=== PATIENT | female | born 2000 | race Caucasian/White ===

== ENCOUNTER → 2020-01-07 14:59 | Outpatient (BNVA) | payer BC, SELFPAY | PROVIDERS: Family Provider Internal Medicine; PCP Nurse Practitioner Family; Visit Provider Nurse Practitioner Family | DX: N39.0 Urinary tract infection, site not specified (principal) | CPT/HCPCS: 80053; 81001 ==

== ENCOUNTER → 2020-01-29 15:55 | Outpatient (BNVA) | payer BC, SELFPAY | PROVIDERS: Family Provider Internal Medicine; PCP Nurse Practitioner Family; Visit Provider Urology | DX: R31.0 Gross hematuria (principal); N93.9 Abnormal uterine and vaginal bleeding, unspecified | CPT/HCPCS: 81001 ==

== ENCOUNTER 2020-12-22 15:41 | Emergency (ER) | payer BC, SELFPAY ==
[2020-12-22 15:47] VITALS: BP 136/97; PULSE 93; RESP 18; TEMP 37.1; O2SAT 100; BMI 45.1
--- NOTE | 2020-12-22 16:37 | CTR_ITS ---
PROCEDURE INFORMATION: Exam: XR Abdomen Exam date and time: 12/22/2020 5:44 PM Age: 20 years (approx. age) old Clinical indication: Nausea and vomiting and other: Diarrhea; Abdominal pain; Localized; Right upper quadrant (ruq); Prior surgery; Surgery type: Gb TECHNIQUE: Imaging protocol: CT abdomen and pelvis with intravenous contrast. Two-dimensional multiplanar reconstruction. COMPARISON: No relevant prior studies available. FINDINGS: Liver: Normal. No mass. Gallbladder and bile ducts: Cholecystectomy. No calcified stones. No ductal dilation. Pancreas: Normal. No ductal dilation. Spleen: Normal. No splenomegaly. Adrenal glands: Normal. No mass. Kidneys and ureters: Normal. No hydronephrosis. Stomach and bowel: Unremarkable. No obstruction. No mucosal thickening. Appendix: No evidence of appendicitis. Intraperitoneal space: Unremarkable. No free air. No significant fluid collection. Vasculature: Unremarkable. No abdominal aortic aneurysm. Lymph nodes: Clustered, prominent increase in mesenteric lymph nodes. Hazy mesenteric induration changes of the central abdominal mesentery around the nodes. Urinary bladder: Unremarkable as visualized. Reproductive: Unremarkable as visualized. Bones/joints: Unremarkable. No acute fracture. Soft tissues: Unremarkable. CT/CT abdomen pelvis w con* [id number] IMPRESSION: Nonspecific mild mesenteric adenitis changes in the central abdomen. Zenia mesentery changes present. Radiation Dose CTDIVOL = (mGy): DLP = 1910.6 (mGy-cm)
[2020-12-22 16:48] VITALS: BP 178/92; PULSE 78; RESP 18; O2SAT 100
[2020-12-22 16:49] LABS: Basophils % 0.5 %; Eosinophils # 0.2 10^3/uL (0.0-0.8); Eosinophils % 2.4 %; Hematocrit 41.2 % (37.0-47.0); Hemoglobin 13.1 g/dL (11.5-15.3); Lymphocytes # 2.7 10^3/uL (1.5-6.5); Mean Corpuscular HGB Conc 31.8 g/dL (30.0-36.0); Mean Corpuscular Hemoglobin 25.8 pg (28.0-34.0); Mean Corpuscular Volume 81.1 fL (81-99); Monocytes # 0.4 10^3/uL (0.2-0.9); Monocytes % 5.1 %; Neutrophils # 5.02 10^3/uL (1.8-8.0); Neutrophils % 59.4 %; Nucleated Red Blood Cells % 0 %; Platelet Count 417 10^3/cmm (130-400); Red Blood Count 5.08 10^6/uL (4.1-5.3); Red Cell Distribution Width 13.4 % (12.1-15.1); White Blood Count 8.4 10^3/uL (4.5-13.0)
[2020-12-22 16:57] LABS: Add Urine Microscopic? NO; Charge for UA Resulting for Rev
[2020-12-22 17:02] LABS: Bilirubin Urine Neg (Negative); Blood Urine Neg (Negative); Glucose Urine UA Norm (Normal); Ketones Urine Negative (Negative); Leukocyte Esterase Urine Negative (Negative); Nitrate Urine Negative (Negative); Protein Urine Neg (Negative); Specific Gravity, Urine 1.005 (1.005-1.030); Urine Appearance Clear (CLEAR); Urine Color Straw (Yellow); Urobilinogen Urine Norm (Negative); pH Urine 5 (5-7)
--- NOTE | 2020-12-22 17:07 | ED_ITS ---
Documented by User: Noé Fan DO 12/26/20 08:08 HPI - Abdominal Pain General: Chief Complaint: Abdominal Pain Stated Complaint: AB/BACK PAIN Time Seen by Provider: 12/22/20 16:34 History of Present Illness: HPI narrative: 20-year-old female presents emergency room complaining of right upper quadrant pain radiating to her back with acholic stools. She has been having this for the last approximately a week. She states it feels like what she had some light with biliary colic but she has had her gallbladder out. She has had nausea but no vomiting or diarrhea. MD elicited complaint: abdominal pain Onset (ago): hour(s) Pain Consistency: intermittent Location: RUQ Quality: cramping Radiation: back Exacerbating factors: eating Relieving factors: nothing Associated Symptoms: Reports anorexia, bloating, change in stool character, GI cramping and poor appetite; Denies belching, change in bowel habits, chills, coffee ground emesis, constipation, diarrhea, dyspepsia, dysuria, excessive flatus, fever(s), heartburn, hematochezia, hematuria, hematemesis, fecal incontinence, loose stools, melena, nausea, syncope and vomiting Review of Systems Const: Denies: fever(s) or chills ENMT: Denies: throat pain, ear or mastoid pain, nasal discharge or nasal congestion Card: Denies: syncope Resp: Denies: dyspnea, productive cough or non-productive cough GI: Reports: abdominal pain, bloating, GI cramping and change in stool character; Denies: nausea, vomiting, hematemesis, coffee ground emesis, heartburn, diarrhea, constipation, belching, excessive flatus, fecal incontinence, change in bowel habits, hematochezia or melena : Denies: dysuria or hematuria Skin/Breast: Denies: rash or pruritus PFSH ED PFSH: Medical History Gross hematuria Lyme disease Polycystic ovarian disease Surgical History S/P cholecystectomy S/P tonsillectomy and adenoidectomy Family History Father CAD (coronary artery disease) Hypertension Hyperlipidemia Mother Hyperlipidemia Hypertension Social History Smoking and tobacco status: never smoked Alcohol intake: never Marital status: Single Current occupational status: student History of recent travel: No Course Vital Signs: Vital signs: Vital Signs Temperature 98.7 F 12/22/20 15:47 Pulse Rate 108 H 12/22/20 18:48 Respiratory Rate 18 12/22/20 18:48 Blood Pressure 178/92 12/22/20 16:48 Pulse Oximetry 98 12/22/20 18:48 MDM - Abdominal Pain MDM Narrative: Medical decision making narrative: Care turned over to Dr. Cao at change of shift see his notes for final diagnosis and disposition. CT is pending Lab Data: Labs: Lab Results 12/22/20 12/22/20 12/22/20 Range/Units 16:40 16:40 16:40 WBC 8.4 (4.5-13.0) 10^3/ uL RBC 5.08 (4.1-5.3) 10^6/u L Hgb 13.1 (11.5-15.3) g/dL Hct 41.2 (37.0-47.0) % MCV 81.1 (81-99) fL MCH 25.8 L (28.0-34.0) pg MCHC 31.8 (30.0-36.0) g/dL RDW 13.4 (12.1-15.1) % Plt Count 417 H (130-400) 10^3/c mm MPV 9.0 (7.4-10.4) fL Neut % (Auto) 59.4 % Lymph % (Auto) 32.0 % [place] % (Auto) 5.1 % Eos % (Auto) 2.4 % Baso % (Auto) 0.5 % Neut # (Auto) 5.02 (1.8-8.0) 10^3/u L Lymph # (Auto) 2.7 (1.5-6.5) 10^3/u L [place] # (Auto) 0.4 (0.2-0.9) 10^3/u L Eos # (Auto) 0.2 (0.0-0.8) 10^3/u L Baso # (Auto) 0.0 (0.0-0.1) 10^3/u L Nucleated RBC % (a uto) 0 % Nucleated RBCs # 0.0 /100WBC Sodium 137 (136-145) mmol/L Potassium 4.2 (3.5-5.1) mmol/L Chloride 104 (98-107) mmol/L Carbon Dioxide 23 (22-29) mmol/L Anion Gap 14.2 (5-19) BUN 6 (6-20) mg/dL Creatinine 0.5 (0.5-0.9) mg/dL GFR Calculation 157.3 H (90-130) mL/min Glucose 97 (65-115) mg/dL Calculated Osmolal ity 282 L (285-295) mOsm/k g Calcium 8.9 (8.5-10.5) mg/dL Total Bilirubin 0.2 (0.15-1.2) mg/dL AST 24 (0-32) U/L ALT 36 H (0-33) U/L Alkaline Phosphata se 59 (35-105) IU/L Total Protein 7.1 (6.6-8.7) g/dL Albumin 4.0 (3.5-5.2) g/dL Globulin 3.1 (1.3-4.6) g/dL Lipase 32 (13-60) U/L HCG, Qual Negative (Negative) Urine Color (Yellow) Urine Appearance (CLEAR) Urine pH (5-7) Ur Specific Gravit y (1.005-1.030) Urine Protein (Negative) Urine Glucose (UA) (Normal) Urine Ketones (Negative) Urine Blood (Negative) Urine Nitrate (Negative) Urine Bilirubin (Negative) Urine Urobilinogen (Negative) mg/dL Ur Leukocyte Jodee ase (Negative) 12/22/20 Range/Units 16:40 WBC (4.5-13.0) 10^3/ uL RBC (4.1-5.3) 10^6/u L Hgb (11.5-15.3) g/dL Hct (37.0-47.0) % MCV (81-99) fL MCH (28.0-34.0) pg MCHC (30.0-36.0) g/dL RDW (12.1-15.1) % Plt Count (130-400) 10^3/c mm MPV (7.4-10.4) fL Neut % (Auto) % Lymph % (Auto) % [place] % (Auto) % Eos % (Auto) % Baso % (Auto) % Neut # (Auto) (1.8-8.0) 10^3/u L Lymph # (Auto) (1.5-6.5) 10^3/u L [place] # (Auto) (0.2-0.9) 10^3/u L Eos # (Auto) (0.0-0.8) 10^3/u L Baso # (Auto) (0.0-0.1) 10^3/u L Nucleated RBC % (a uto) % Nucleated RBCs # /100WBC Sodium (136-145) mmol/L Potassium (3.5-5.1) mmol/L Chloride (98-107) mmol/L Carbon Dioxide (22-29) mmol/L Anion Gap (5-19) BUN (6-20) mg/dL Creatinine (0.5-0.9) mg/dL GFR Calculation (90-130) mL/min Glucose (65-115) mg/dL Calculated Osmolal ity (285-295) mOsm/k g Calcium (8.5-10.5) mg/dL Total Bilirubin (0.15-1.2) mg/dL AST (0-32) U/L ALT (0-33) U/L Alkaline Phosphata se (35-105) IU/L Total Protein (6.6-8.7) g/dL Albumin (3.5-5.2) g/dL Globulin (1.3-4.6) g/dL Lipase (13-60) U/L HCG, Qual (Negative) Urine Color Straw (Yellow) Urine Appearance Clear (CLEAR) Urine pH 5 (5-7) Ur Specific Gravit y 1.005 (1.005-1.030) Urine Protein Neg (Negative) Urine Glucose (UA) Norm (Normal) Urine Ketones Negative (Negative) Urine Blood Neg (Negative) Urine Nitrate Negative (Negative) Urine Bilirubin Neg (Negative) Urine Urobilinogen Norm (Negative) mg/dL Ur Leukocyte Jodee ase Negative (Negative) Discharge Plan Discharge Patient Disposition: Home Clinical Impression: Mesenteric adenitis, Abdominal pain, acute, right upper quadrant Nausea & vomiting Qualifiers: Vomiting type: unspecified Vomiting Intractability: non-intractable Qualified Code(s): R11.2 - Nausea with vomiting, unspecified Condition: Stable Prescriptions: New Zofran 4 mg tablet 4 mg PO Q6H PRN (Reason: nausea and vomiting) Qty: 10 RF: 1 diclofenac sodium 75 mg tablet,delayed release (DR/EC) 75 mg PO BID PRN (Reason: pain) Qty: 10 RF: 1 No Action cetirizine [Zyrtec] 10 mg tablet 10 mg PO DAILY@21 RF: 0 L norgest/e.estradiol-e.estrad [Jaimiess] 0.15 mg-30 mcg (84)/10 mcg (7) tablets,dose pack,3 month 1 tab PO DAILY@21 RF: 0 venlafaxine 37.5 mg capsule,extended release 24hr 37.5 mg PO DAILY@09 RF: 0 ondansetron HCl 4 mg tablet 4 mg PO Q6H PRN (Reason: Nausea) RF: 0 hydroxyzine HCl 50 mg tablet 25 - 50 mg PO QPM PRN (Reason: Anxiety) RF: 0 pantoprazole 40 mg tablet,delayed release (DR/EC) 40 mg PO QAM RF: 0 ferrous sulfate 325 mg (65 mg iron) tablet 325 mg PO DAILY@21 RF: 0 ibuprofen 200 mg Tablet 400 mg PO PRN RF: 0 Suprep Bowel Prep Kit 17.5-3.13-1.6 gram recon soln See Rx Instructions .ROUTE .COMPLEX RF: 0 Hair, Skin, Nails with Biotin 7.5-7.5-1,250 mg-unit-mcg Tablet,Chewable 2 tab PO DAILY RF: 0 Discharge Orders: Discharge ED (Routine); Ordered 12/22/20 Ordered By: Victor Hugo Cao Referrals: Kwame Vasquez MD [Primary Care Provider] - Discharge Diet: Usual diet Discharge Activity: Resume usual activity Patient Instructions: Abdominal Pain (ED), Opioid Safety Stand Alone Forms: Work/School Release Coding Level of Care Code ED Hat Copyist for Chg Fwd Exam Comprehensive Documented by User: Victor Hugo Cao MD 12/22/20 19:47 HPI - Abdominal Pain General: Chief Complaint: Abdominal Pain Stated Complaint: AB/BACK PAIN Time Seen by Provider: 12/22/20 16:34 Source: patient and family Mode of arrival: ambulatory Limitations: no limitations History of Present Illness: HPI narrative: abd pain for 5 days ruq epigastric MD elicited complaint: abdominal pain Pertinent past history: constipation Onset (ago): day(s) (5) Pain Consistency: intermittent Location: Epigastric and RUQ Severity: moderate Quality: cramping Radiation: none Migration to: no migration Exacerbating factors: nothing Relieving factors: nothing Associated Symptoms: Reports nausea and vomiting; Denies fever(s), hematochezia and hematemesis Related Data: Patient : No Review of Systems Const: Denies: fever(s) Eyes: Denies: change in vision ENMT: Denies: throat pain Card: Denies: chest pain Resp: Denies: dyspnea GI: Reports: abdominal pain, nausea and vomiting; Denies: hematemesis or hematochezia : Denies: flank pain Musc: Denies: neck pain Skin/Breast: Denies: rash Neuro: Denies: headache(s) Psych: Reports: anxiety Endo: Denies: polyuria Carlo/Lymph: Denies: easy bruising or tender lymph nodes All/Imm: Denies: urticaria PFSH ED PFSH: Medical History Gross hematuria Lyme disease Polycystic ovarian disease Surgical History S/P cholecystectomy S/P tonsillectomy and adenoidectomy Family History Father CAD (coronary artery disease) Hypertension Hyperlipidemia Mother Hyperlipidemia Hypertension Social History Smoking and tobacco status: never smoked Alcohol intake: never Marital status: Single Current occupational status: student History of recent travel: No Physical Exam Const: COMMON NORMALS: average body habitus (obese) and patient oriented x3 EXAM LIMITATIONS: no altered mental status GENERAL APPEARANCE: cooperative and anxious NUTRITIONAL APPEARANCE: obese ORIENTATION/CONSCIOUSNESS: Yes awake and Yes oriented to person HENMT: COMMON NORMALS: normocephalic HEAD & SCALP: normocephalic FACE & SINUS: normal facial exam MOUTH: Normal oral and palatal mucosa present Eye: GENERAL EYE: appearance normal, both eyes and all related structures Neck/C-Spine: COMMON NORMALS: full ROM, no lymphadenopathy and no JVD Lymph: LYMPHATIC: no lymphadenopathy noted Chest: COMMONS NORMALS: normal inspection of the chest CHEST: Yes Symmetrical chest wall rise Resp: COMMON NORMALS: normal respiratory effort and clear to auscultation bilaterally EFFORT & INSPECTION: Yes able to speak in complete sentences AUSCULTATION: clear to auscultation bilaterally Cardio: COMMON NORMALS: no JVD, regular rate (mild tachycardia), regular rhythm and Peripheral pulses 2+ throughout JUGULAR VENOUS DISTENTION: no JVD RATE: regular rate (mild tachycardia) RHYTHM: regular rhythm PERIPHERAL PULSES: Peripheral pulses 2+ throughout GI: COMMON NORMALS: Soft to palpation AUSCULTATION: Yes normoactive bowel sounds PALPATION: Yes Soft to palpation and Yes Tenderness to palpation present (GI) Details: LUQ, RUQ and other (mild epigastric and mild luq/ruq) PERCUSSION: normal to percussion : COMMON NORMALS: Yes no CVA tenderness BLADDER/KIDNEY EXAM: Yes no CVA tenderness Back/Pelvis: COMMON NORMALS: no CVA tenderness Extremity: COMMON NORMALS: normal to inspection GENERAL: Yes normal exam except as noted Neuro: ROMULO COMA SCALE: document GCS findings (15) Romulo coma scale eye opening: Spontaneous [place] coma scale verbal response: Orientated [place] coma scale motor response: Obey commands [place] coma scale total score: 15 COMMON NORMALS: patient oriented x3 SENSORIUM/ORIENTATION: Yes oriented to person SPEECH: speech normal MOTOR EXAM: 5/5 motor strength present throughout Psych: COMMON NORMALS: mental status grossly normal and speech normal SPEECH: Yes normal speech Skin: COMMON NORMALS: no rashes or lesions noted GENERAL SKIN EXAM: no rashes or lesions noted Course Vital Signs: Vital signs: Vital Signs Temperature 98.7 F 12/22/20 15:47 Pulse Rate 108 H 12/22/20 18:48 Respiratory Rate 18 12/22/20 18:48 Blood Pressure 178/92 12/22/20 16:48 Pulse Oximetry 98 12/22/20 18:48 MDM - Abdominal Pain Differential Diagnosis: Differential diagnosis abdominal pain: Likely abdominal pain, gastroenteritis and pancreatitis Lab Data: Attestation: I reviewed the patient's lab results. Labs: Lab Results 12/22/20 12/22/20 12/22/20 Range/Units 16:40 16:40 16:40 WBC 8.4 (4.5-13.0) 10^3/ uL RBC 5.08 (4.1-5.3) 10^6/u L Hgb 13.1 (11.5-15.3) g/dL Hct 41.2 (37.0-47.0) % MCV 81.1 (81-99) fL MCH 25.8 L (28.0-34.0) pg MCHC 31.8 (30.0-36.0) g/dL RDW 13.4 (12.1-15.1) % Plt Count 417 H (130-400) 10^3/c mm MPV 9.0 (7.4-10.4) fL Neut % (Auto) 59.4 % Lymph % (Auto) 32.0 % [place] % (Auto) 5.1 % Eos % (Auto) 2.4 % Baso % (Auto) 0.5 % Neut # (Auto) 5.02 (1.8-8.0) 10^3/u L Lymph # (Auto) 2.7 (1.5-6.5) 10^3/u L [place] # (Auto) 0.4 (0.2-0.9) 10^3/u L Eos # (Auto) 0.2 (0.0-0.8) 10^3/u L Baso # (Auto) 0.0 (0.0-0.1) 10^3/u L Nucleated RBC % (a uto) 0 % Nucleated RBCs # 0.0 /100WBC Sodium 137 (136-145) mmol/L Potassium 4.2 (3.5-5.1) mmol/L Chloride 104 (98-107) mmol/L Carbon Dioxide 23 (22-29) mmol/L Anion Gap 14.2 (5-19) BUN 6 (6-20) mg/dL Creatinine 0.5 (0.5-0.9) mg/dL GFR Calculation 157.3 H (90-130) mL/min Glucose 97 (65-115) mg/dL Calculated Osmolal ity 282 L (285-295) mOsm/k g Calcium 8.9 (8.5-10.5) mg/dL Total Bilirubin 0.2 (0.15-1.2) mg/dL AST 24 (0-32) U/L ALT 36 H (0-33) U/L Alkaline Phosphata se 59 (35-105) IU/L Total Protein 7.1 (6.6-8.7) g/dL Albumin 4.0 (3.5-5.2) g/dL Globulin 3.1 (1.3-4.6) g/dL Lipase 32 (13-60) U/L HCG, Qual Negative (Negative) Urine Color (Yellow) Urine Appearance (CLEAR) Urine pH (5-7) Ur Specific Gravit y (1.005-1.030) Urine Protein (Negative) Urine Glucose (UA) (Normal) Urine Ketones (Negative) Urine Blood (Negative) Urine Nitrate (Negative) Urine Bilirubin (Negative) Urine Urobilinogen (Negative) mg/dL Ur Leukocyte Jodee ase (Negative) 12/22/20 Range/Units 16:40 WBC (4.5-13.0) 10^3/ uL RBC (4.1-5.3) 10^6/u L Hgb (11.5-15.3) g/dL Hct (37.0-47.0) % MCV (81-99) fL MCH (28.0-34.0) pg MCHC (30.0-36.0) g/dL RDW (12.1-15.1) % Plt Count (130-400) 10^3/c mm MPV (7.4-10.4) fL Neut % (Auto) % Lymph % (Auto) % [place] % (Auto) % Eos % (Auto) % Baso % (Auto) % Neut # (Auto) (1.8-8.0) 10^3/u L Lymph # (Auto) (1.5-6.5) 10^3/u L [place] # (Auto) (0.2-0.9) 10^3/u L Eos # (Auto) (0.0-0.8) 10^3/u L Baso # (Auto) (0.0-0.1) 10^3/u L Nucleated RBC % (a uto) % Nucleated RBCs # /100WBC Sodium (136-145) mmol/L Potassium (3.5-5.1) mmol/L Chloride (98-107) mmol/L Carbon Dioxide (22-29) mmol/L Anion Gap (5-19) BUN (6-20) mg/dL Creatinine (0.5-0.9) mg/dL GFR Calculation (90-130) mL/min Glucose (65-115) mg/dL Calculated Osmolal ity (285-295) mOsm/k g Calcium (8.5-10.5) mg/dL Total Bilirubin (0.15-1.2) mg/dL AST (0-32) U/L ALT (0-33) U/L Alkaline Phosphata se (35-105) IU/L Total Protein (6.6-8.7) g/dL Albumin (3.5-5.2) g/dL Globulin (1.3-4.6) g/dL Lipase (13-60) U/L HCG, Qual (Negative) Urine Color Straw (Yellow) Urine Appearance Clear (CLEAR) Urine pH 5 (5-7) Ur Specific Gravit y 1.005 (1.005-1.030) Urine Protein Neg (Negative) Urine Glucose (UA) Norm (Normal) Urine Ketones Negative (Negative) Urine Blood Neg (Negative) Urine Nitrate Negative (Negative) Urine Bilirubin Neg (Negative) Urine Urobilinogen Norm (Negative) mg/dL Ur Leukocyte Jodee ase Negative (Negative) Imaging Data ^: CT Abd/Pel: Radiologist's impression: [address] [address] [address] Scan Report Signed Patient: Mara Gibbs #: [id number] : 2000Acct#:[id number] Age/Sex: 20 / FADM Date: 12/22/20 Loc: ERRoom/Bed: Attending Dr: Ordering Provider/Ordering MD: Noé Fan DO Date of Service: 12/22/20 Procedure(s): CT abdomen pelvis w con* [id number] Accession Number(s): [id number] Report Number: [id number] PROCEDURE INFORMATION: Exam: XR Abdomen Exam date and time: 12/22/2020 5:44 PM Age: 20 years (approx. age) old Clinical indication: Nausea and vomiting and other: Diarrhea; Abdominal pain; Localized; Right upper quadrant (ruq); Prior surgery; Surgery type: Gb TECHNIQUE: Imaging protocol: CT abdomen and pelvis with intravenous contrast. Two-dimensional multiplanar reconstruction. COMPARISON: No relevant prior studies available. FINDINGS: Liver: Normal. No mass. Gallbladder and bile ducts: Cholecystectomy. No calcified stones. No ductal dilation. Pancreas: Normal. No ductal dilation. Spleen: Normal. No splenomegaly. Adrenal glands: Normal. No mass. Kidneys and ureters: Normal. No hydronephrosis. Stomach and bowel: Unremarkable. No obstruction. No mucosal thickening. Appendix: No evidence of appendicitis. Intraperitoneal space: Unremarkable. No free air. No significant fluid collection. Vasculature: Unremarkable. No abdominal aortic aneurysm. Lymph nodes: Clustered, prominent increase in mesenteric lymph nodes. Hazy mesenteric induration changes of the central abdominal mesentery around the nodes. Urinary bladder: Unremarkable as visualized. Reproductive: Unremarkable as visualized. Bones/joints: Unremarkable. No acute fracture. Soft tissues: Unremarkable. CT/CT abdomen pelvis w con* [id number] IMPRESSION: Nonspecific mild mesenteric adenitis changes in the central abdomen. Zenia mesentery changes present. Radiation Dose CTDIVOL = (mGy): DLP = 1910.6 (mGy-cm) Dictated By:Semaj Vila Signed By:Balwinder Vila Date/Time:12/22/20 432 Discharge Plan Discharge Patient Disposition: Home Clinical Impression: Mesenteric adenitis, Abdominal pain, acute, right upper quadrant Nausea & vomiting Qualifiers: Vomiting type: unspecified Vomiting Intractability: non-intractable Qualified Code(s): R11.2 - Nausea with vomiting, unspecified Condition: Stable Prescriptions: New Zofran 4 mg tablet 4 mg PO Q6H PRN (Reason: nausea and vomiting) Qty: 10 RF: 1 diclofenac sodium 75 mg tablet,delayed release (DR/EC) 75 mg PO BID PRN (Reason: pain) Qty: 10 RF: 1 No Action cetirizine [Zyrtec] 10 mg tablet 10 mg PO DAILY@21 RF: 0 L norgest/e.estradiol-e.estrad [Jaimiess] 0.15 mg-30 mcg (84)/10 mcg (7) tablets,dose pack,3 month 1 tab PO DAILY@21 RF: 0 venlafaxine 37.5 mg capsule,extended release 24hr 37.5 mg PO DAILY@09 RF: 0 ondansetron HCl 4 mg tablet 4 mg PO Q6H PRN (Reason: Nausea) RF: 0 hydroxyzine HCl 50 mg tablet 25 - 50 mg PO QPM PRN (Reason: Anxiety) RF: 0 pantoprazole 40 mg tablet,delayed release (DR/EC) 40 mg PO QAM RF: 0 ferrous sulfate 325 mg (65 mg iron) tablet 325 mg PO DAILY@21 RF: 0 ibuprofen 200 mg Tablet 400 mg PO PRN RF: 0 Suprep Bowel Prep Kit 17.5-3.13-1.6 gram recon soln See Rx Instructions .ROUTE .COMPLEX RF: 0 Hair, Skin, Nails with Biotin 7.5-7.5-1,250 mg-unit-mcg Tablet,Chewable 2 tab PO DAILY RF: 0 Discharge Orders: Discharge ED (Routine); Ordered 12/22/20 Ordered By: Victor Hugo Cao Referrals: Kwame Vasquez MD [Primary Care Provider] - Discharge Diet: Usual diet Discharge Activity: Resume usual activity Patient Instructions: Abdominal Pain (ED), Opioid Safety Stand Alone Forms: Work/School Release Coding Level of Care Code ED Hat Copyist for Amrit Fwd Exam Comprehensive
[2020-12-22 17:14] LABS: HCG, Serum Qual Negative (Negative)
[2020-12-22 17:18] LABS: Alanine Aminotransferase 36 U/L (0-33); Alkaline Phosphatase 59 IU/L (35-105); Anion Gap 14.2 (5-19); Aspartate Amino Transferase 24 U/L (0-32); Blood Urea Nitrogen 6 mg/dL (6-20); Calcium 8.9 mg/dL (8.5-10.5); Carbon Dioxide 23 mmol/L (22-29); Chloride 104 mmol/L (98-107); Globulin 3.1 g/dL (1.3-4.6); Glomerular Filtration Rate 157.3 mL/min (90-130); Glucose 97 mg/dL (65-115); Lipase 32 U/L (13-60); Osmolality Calculated 282 mOsm/kg (285-295); Potassium 4.2 mmol/L (3.5-5.1); Sodium 137 mmol/L (136-145); Total Bilirubin 0.2 mg/dL (0.15-1.2); Total Protein 7.1 g/dL (6.6-8.7)
[2020-12-22] MEDS: iohexol 300 mg/mL 100 mL Btl IV (17:30)
[2020-12-22] MEDS: morphine 4 mg/mL SDV 1 mL IVP (17:47)
[2020-12-22] MEDS: ondansetron 2 mg/ML SDV 2 mL 4 MG IVP (17:47)
[2020-12-22] MEDS: promethazine 25 mg/mL SDV 1 mL IM (18:27)
[2020-12-22] MEDS: HYDROmorphone 1 mg/mL INJ 1 mL 0.5 MG IVP (18:28)
[2020-12-22 18:48] VITALS: PULSE 108; RESP 18; O2SAT 98
[2020-12-22] MEDS: ketorolac 30 mg/mL INJ 15 MG IVP (19:52)
== END 2020-12-22 20:00 | disposition home or self-care (01) ==
PROVIDERS: Family Medicine; Emergency Provider Family Medicine; PCP Internal Medicine
DX: I88.0 Nonspecific mesenteric lymphadenitis (principal); R10.11 Right upper quadrant pain; R11.2 Nausea with vomiting, unspecified
CPT/HCPCS: 74177; 80053; 81003; 83690; 84703; 85025; 96372; 96374; 96375; 99284; J1170; J1885; J2270; J2405; J2550; Q9967

== ENCOUNTER → 2021-02-27 17:49 | Outpatient (BNVA) | payer BC, SELFPAY | PROVIDERS: PCP Internal Medicine; Visit Provider Nurse Practitioner | DX: N39.0 Urinary tract infection, site not specified (principal) | CPT/HCPCS: 81000 ==

== ENCOUNTER → 2021-03-03 15:46 | Outpatient (BNVA) | payer BC, SELFPAY | PROVIDERS: PCP Internal Medicine; Visit Provider Registered Nurse Neonatal Intensive Care | DX: N39.0 Urinary tract infection, site not specified (principal) | CPT/HCPCS: 81000 ==

== ENCOUNTER 2021-09-18 12:46 | Outpatient (CLI) | payer BC, SELFPAY ==
--- NOTE | 2021-09-18 12:49 | US_ITS ---
WS: [id number] ULTRASOUND THYROID TECHNIQUE: Ultrasound of the thyroid. CLINICAL INFORMATION: THYROMEGALY COMPARISON: None. FINDINGS: Thyroid: Right and left thyroid lobes are normal in size and echotexture. No thyroid nodules are pres ent. Right thyroid lobe: 5.8 cm x 1.7 cm x 1.3 cm Right lobe thyroid volume 6.6 cc Left thyroid lobe: 5.7 cm x 1.4 cm x 1.2 cm. Left lobe thyroid volume 4.9 cc Isthmus: 0.3 mm. Cervical lymphadenopathy: None. US/US thyroid [id number] IMPRESSION: Normal thyroid ultrasound examination.
== END 2021-09-18 12:47 | disposition home or self-care (01) ==
LOC: RAD 12:47
PROVIDERS: PCP Internal Medicine; Visit Provider Nurse Practitioner Family
DX: E04.9 Nontoxic goiter, unspecified (principal)
CPT/HCPCS: 76536

== ENCOUNTER 2022-03-21 10:48 | Emergency (ER) | payer BC, SELFPAY ==
[2022-03-21 11:03] VITALS: BP 134/93; PULSE 101; RESP 20; TEMP 36.7; O2SAT 98
--- NOTE | 2022-03-21 11:04 | W.ED.ABDPA2 ---
Documented by User: THELMA Ortiz 03/21/22 14:36 HPI - Abdominal Pain General: Chief Complaint: Abdominal Pain Stated Complaint: Abd pain, N/V Time Seen by Provider: 03/21/22 10:54 Source: patient Mode of arrival: ambulatory Limitations: no limitations History of Present Illness: Patient is a 21-year-old female presents to ED today with a complaint of right upper abdominal pain that began fairly suddenly approximately 1.5 hours ago. Patient states she had a similar episode last year and was seen here and diagnosed with mesenteric adenitis. She has had several other episodes since that time of lesser severity that seemed to subside on their own at home. Patient states she is status post cholecystectomy. She states she is having a little bit of nausea secondary to the pain but denies emesis. She is having normal bowel movements. She does report pain seems to radiate into the right side of her back and flank. She is not having any urinary symptoms. Patient has no history of nephro/ureterolithiasis. She denies fevers. Patient does have a history of possible Robertson's esophagus that she receives annual endoscopies for monitoring. She is on pantoprazole daily and did take this today. She does not complain of any heartburn/GERD symptoms. MD elicited complaint: abdominal pain Pertinent past history: none Onset (ago): hour(s) Pain Consistency: constant Location: RUQ Quality: sharp Radiation: R flank and back Exacerbating factors: nothing Relieving factors: nothing Associated Symptoms: Reports nausea; Denies bloating, change in bowel habits, chills, constipation, diarrhea, dysuria, fever(s), hematochezia, melena and vomiting Related Data: Patient : No Review of Systems Const: Denies: fever(s), chills, body aches, fatigue or malaise Card: Denies: chest pain Resp: Denies: dyspnea GI: Reports: abdominal pain and nausea; Denies: vomiting, diarrhea, constipation, bloating, change in bowel habits, hematochezia, melena or white/light colored stool : Denies: difficulty voiding, dysuria, urinary frequency, urinary urgency or pelvic pain Musc: Reports: back pain (states pain radiates into her back on R side); Denies: neck pain, extremity pain or joint pain Skin/Breast: Denies: rash Neuro: Denies: headache(s) PFSH ED PFS: Medical History (Updated 03/29/22 @ 00:01 by ) Gross hematuria Lyme disease Polycystic ovarian disease Surgical History S/P cholecystectomy S/P tonsillectomy and adenoidectomy Family History Father CAD (coronary artery disease) Hypertension Hyperlipidemia Mother Hyperlipidemia Hypertension Social History Smoking and tobacco status: never smoked Alcohol intake: never Marital status: Single Current occupational status: student History of recent travel: No Physical Exam Const: COMMON NORMALS: no acute distress, patient oriented x3, no limitations and alert GENERAL APPEARANCE: cooperative NUTRITIONAL APPEARANCE: obese morbidly obese ORIENTATION/CONSCIOUSNESS: Yes awake, Yes oriented to person, Yes oriented to place and Yes oriented to time HENMT: COMMON NORMALS: normocephalic and atraumatic HEAD & SCALP: normal to inspection, normocephalic and atraumatic Eye: GENERAL EYE: appearance normal, both eyes and all related structures Resp: COMMON NORMALS: normal respiratory effort and clear to auscultation bilaterally AUSCULTATION: clear to auscultation bilaterally Cardio: COMMON NORMALS: regular rate and regular rhythm RATE: regular rate RHYTHM: regular rhythm GI: COMMON NORMALS: Normal to inspection, nondistended, normoactive bowel sounds present, Soft to palpation, No hepatosplenomegaly present and no masses INSPECTION: Yes normal to inspection AUSCULTATION: Yes normoactive bowel sounds PALPATION: Yes Soft to palpation, Yes Tenderness to palpation present (GI) Details: RUQ, No Guarding due to palpation present (GI), No Rigid due to palpation and Yes No hepatosplenomegaly present : BLADDER/KIDNEY EXAM: Yes CVA tenderness (mild R ) Back/Pelvis: COMMON NORMALS: thoracic and lumbar spine normal to inspection, no thoracic nor lumbar tenderness and thoraco-lumbar ROM normal GENERAL BACK: Yes CVA tenderness (mild R ) Extremity: COMMON NORMALS: normal to inspection GENERAL: Yes normal exam except as noted Neuro: ROMULO COMA SCALE: document GCS findings [place] coma scale eye opening: Spontaneous [place] coma scale verbal response: Orientated [place] coma scale motor response: Obey commands Romulo coma scale total score: 15 COMMON NORMALS: patient oriented x3, moves all extremities, no focal motor deficits and no sensory deficits noted SENSORIUM/ORIENTATION: Yes alert, Yes oriented to person, Yes oriented to place and Yes oriented to time Skin: COMMON NORMALS: no rashes or lesions noted GENERAL SKIN EXAM: no rashes or lesions noted Course Vital Signs: Vital signs: Vital Signs Temperature 98.0 F 03/21/22 11:03 Pulse Rate 88 03/21/22 14:43 Respiratory Rate 16 03/21/22 14:43 Blood Pressure 156/88 03/21/22 14:43 Pulse Oximetry 98 03/21/22 14:43 MDM - Abdominal Pain Medical Decision Making Patient is feeling much better on re-examination. Her vital signs are stable. Labs show white count of 13.7. She is not tachycardic or febrile. Remainder of labs are fairly unremarkable. She has some very minor elevations to her AST/ALT most likely from a fatty liver as patient is morbidly obese with a BMI of 44.4. UA is contaminated. She does not complain of any urinary symptoms. Based on her clinical history I do not have any concern for acute pyelonephritis. CT imaging showed questionable acute pancreatitis recommended correlation with lipase. Her lipase is normal. Patient has had multiple similar episodes over the past year ranging in degrees of severity. Patient does have an established GI provider in [facility] that she states she will follow up with. Return to ED precautions given. Lab Data : 03/21/22 12:12 03/21/22 12:12 Labs/Radiology: Radiology Impressions Abdomen/Pelvis CT 03/21/22 12:27 IMPRESSION: There is questionable acute pancreatitis. Correlation with amylase and lipase are suggested. Laboratory Results WBC 13.7 10^3/uL (4.0-10.0) H 03/21/22 12:12 RBC 4.89 10^6/uL (4.1-5.3) 03/21/22 12:12 Hgb 12.8 g/dL (11.5-15.3) 03/21/22 12:12 Hct 38.3 % (37.0-47.0) 03/21/22 12:12 MCV 78.3 fl (81-99) L 03/21/22 12:12 MCH 26.2 pg (28.0-34.0) L 03/21/22 12:12 MCHC 33.4 g/dL (30.0-36.0) 03/21/22 12:12 RDW 14.1 % (12.1-15.1) 03/21/22 12:12 Plt Count 431 10^3/cmm (130-400) H 03/21/22 12:12 MPV 9.4 fL (7.4-10.4) 03/21/22 12:12 Neut % (Auto) 59.2 % 03/21/22 12:12 Lymph % (Auto) 30.8 % 03/21/22 12:12 [place] % (Auto) 5.0 % 03/21/22 12:12 Eos % (Auto) 3.4 % 03/21/22 12:12 Baso % (Auto) 0.6 % 03/21/22 12:12 Neut # (Auto) 8.12 10^3/uL (1.8-7.7) H 03/21/22 12:12 Lymph # (Auto) 4.2 10^3/uL (0.8-4.8) 03/21/22 12:12 [place] # (Auto) 0.7 10^3/uL (0.2-0.9) 03/21/22 12:12 Eos # (Auto) 0.5 10^3/uL (0.0-0.8) 03/21/22 12:12 Baso # (Auto) 0.1 10^3/uL (0.0-0.1) 03/21/22 12:12 Nucleated RBC % (auto) 0 % 03/21/22 12:12 Nucleated RBCs # 0.0 /100WBC 03/21/22 12:12 Sodium 140 mmol/L (136-145) 03/21/22 12:12 Potassium 3.6 mmol/L (3.5-5.1) 03/21/22 12:12 Chloride 104 mmol/L (98-107) 03/21/22 12:12 Carbon Dioxide 24 mmol/L (22-29) 03/21/22 12:12 Anion Gap 15.6 (5-19) 03/21/22 12:12 BUN 6 mg/dL (6-20) 03/21/22 12:12 Creatinine 0.7 mg/dL (0.5-0.9) 03/21/22 12:12 GFR Calculation 105.6 mL/min (90-130) 03/21/22 12:12 Glucose 94 mg/dL (65-115) 03/21/22 12:12 Calculated Osmolality 287 mOsm/kg (285-295) 03/21/22 12:12 Calcium 9.5 mg/dL (8.5-10.5) 03/21/22 12:12 Total Bilirubin 0.3 mg/dL (0.15-1.2) 03/21/22 12:12 AST 46 U/L (0-32) H 03/21/22 12:12 ALT 36 U/L (0-33) H 03/21/22 12:12 Alkaline Phosphatase 79 IU/L (35-105) 03/21/22 12:12 Total Protein 7.7 g/dL (6.6-8.7) 03/21/22 12:12 Albumin 4.1 g/dL (3.5-5.2) 03/21/22 12:12 Globulin 3.6 g/dL (1.3-4.6) 03/21/22 12:12 Lipase 34 U/L (13-60) 03/21/22 12:12 HCG, Qual Negative (Negative) 03/21/22 12:12 Urine Color Dark yellow (Yellow) 03/21/22 14:15 Urine Appearance Clear (CLEAR) 03/21/22 14:15 Urine pH 5 (5-7) 03/21/22 14:15 Ur Specific [place]nelly 1.025 (1.005-1.030) 03/21/22 14:15 Urine Protein Neg (Negative) 03/21/22 14:15 Urine Glucose (UA) Norm (Normal) 03/21/22 14:15 Urine Ketones Negative (Negative) 03/21/22 14:15 Urine Blood Neg (Negative) 03/21/22 14:15 Urine Nitrate Negative (Negative) 03/21/22 14:15 Urine Bilirubin 1+ (Negative) H 03/21/22 14:15 Urine Urobilinogen 8 mg/dL (Negative) H 03/21/22 14:15 Ur Leukocyte Esterase Trace (Negative) H 03/21/22 14:15 Urine RBC None /hpf (0-2) 03/21/22 14:15 Urine WBC 5-10 /hpf (0-5) H 03/21/22 14:15 Ur Squamous Epith Cells 5-10 /hpf (0-5) H 03/21/22 14:15 Amorphous Sediment Not Reportable 03/21/22 14:15 Urine Bacteria Trace /hpf (NONE) 03/21/22 14:15 Urine Mucus 1+ /hpf 03/21/22 11:22 Discharge Plan Discharge Patient Disposition: Home Clinical Impression: Right upper quadrant abdominal pain of unknown etiology Condition: Stable Prescriptions: No Action cetirizine [Zyrtec] 10 mg tablet 10 mg PO DAILY@21 0RF L norgest/e.estradiol-e.estrad [Jaimiess] 0.15 mg-30 mcg (84)/10 mcg (7) tablets,dose pack,3 month 1 tab PO DAILY@21 0RF phenazopyridine [Pyridium] 200 mg tablet 200 mg PO TID Qty: 6 0RF fluconazole [Diflucan] 150 mg tablet 150 mg PO ONCE Qty: 1 0RF sulfamethoxazole-trimethoprim [Bactrim DS] 800-160 mg tablet 1 tab PO BID 5 Days Qty: 10 0RF triamcinolone acetonide 0.025 % cream 1 applic topical BID 7 Days Qty: 80 0RF venlafaxine 37.5 mg capsule,extended release 24hr 37.5 mg PO DAILY@09 0RF hydroxyzine HCl 50 mg tablet 25 - 50 mg PO QPM PRN (Reason: Anxiety) 0RF ferrous sulfate 325 mg (65 mg iron) tablet 325 mg PO DAILY@21 0RF ibuprofen 200 mg Tablet 400 mg PO PRN 0RF Suprep Bowel Prep Kit 17.5-3.13-1.6 gram recon soln See Rx Instructions .ROUTE .COMPLEX 0RF Rx Instructions: as directed Hair, Skin, Nails with Biotin 7.5-7.5-1,250 mg-unit-mcg Tablet,Chewable 2 tab PO DAILY 0RF Zofran 4 mg tablet 4 mg PO Q6H PRN (Reason: nausea and vomiting) Qty: 10 1RF Rx Instructions: prn n/v; dispense #10 tabs diclofenac sodium 75 mg tablet,delayed release (DR/EC) 75 mg PO BID PRN (Reason: pain) Qty: 10 1RF Discharge Orders: Discharge ED (Routine); Ordered 03/21/22 Ordered By: Gayathri Palma Referrals: Kwame Vasquez MD [Primary Care Provider] - Coding Level of Care Code ED Showcase Maker for Chg Fwd Exam Comprehensive Documented by User: Anibal Mccarthy MD 03/29/22 11:10 HPI - Abdominal Pain General: Chief Complaint: Abdominal Pain Stated Complaint: Abd pain, N/V Time Seen by Provider: 03/21/22 10:54 PFSH ED PFSH: Medical History (Updated 03/29/22 @ 00:01 by ) Gross hematuria Lyme disease Polycystic ovarian disease Surgical History S/P cholecystectomy S/P tonsillectomy and adenoidectomy Family History Father CAD (coronary artery disease) Hypertension Hyperlipidemia Mother Hyperlipidemia Hypertension Social History Smoking and tobacco status: never smoked Alcohol intake: never Marital status: Single Current occupational status: student History of recent travel: No Physical Exam Neuro: ROMULO COMA SCALE: document GCS findings [place] coma scale total score: 15 Course Vital Signs: Vital signs: Vital Signs Temperature 98.0 F 03/21/22 11:03 Pulse Rate 88 03/21/22 14:43 Respiratory Rate 16 03/21/22 14:43 Blood Pressure 156/88 03/21/22 14:43 Pulse Oximetry 98 03/21/22 14:43 MDM - Abdominal Pain Medical Decision Making Patient is feeling much better on re-examination. Her vital signs are stable. Labs show white count of 13.7. She is not tachycardic or febrile. Remainder of labs are fairly unremarkable. She has some very minor elevations to her AST/ALT most likely from a fatty liver as patient is morbidly obese with a BMI of 44.4. UA is contaminated. She does not complain of any urinary symptoms. Based on her clinical history I do not have any concern for acute pyelonephritis. CT imaging showed questionable acute pancreatitis recommended correlation with lipase. Her lipase is normal. Patient has had multiple similar episodes over the past year ranging in degrees of severity. Patient does have an established GI provider in [facility] that she states she will follow up with. Return to ED precautions given. Dr. Mccarthy - Patient evaluation, diagnosis, and management was performed independently by Gayathri Palma. I did not personally see the patient nor staff the patient with patient's provider. I did review the patient's note today and I believe this note is consistent. Lab Data : 03/21/22 12:12 03/21/22 12:12 Labs/Radiology: Radiology Impressions Abdomen/Pelvis CT 03/21/22 12:27
[2022-03-21 12:06] LABS: Blood Urine Neg (Negative); Glucose Urine UA Norm (Normal); Ketones Urine Negative (Negative); Nitrate Urine Negative (Negative); Protein Urine Neg (Negative); Specific Gravity, Urine 1.025 (1.005-1.030); Urine Appearance Hazy (CLEAR); Urine Color Yellow (Yellow); pH Urine 5 (5-7)
[2022-03-21 12:07] VITALS: RESP 16
[2022-03-21 12:07] LABS: Add Urine Microscopic? YES; Bacteria Urine 2+ /hpf; Bilirubin Urine 1+ (Negative); Leukocyte Esterase Urine Trace (Negative); Mucus Urine 1+ /hpf; Squamous Epithelial Cell Urine 15-25 /hpf (0-5); Urobilinogen Urine 4 mg/dL (Negative)
[2022-03-21] MEDS: HYDROmorphone 1 mg/mL INJ 1 mL 0.5 MG IVP (12:07)
[2022-03-21] MEDS: ondansetron 2 mg/ML SDV 2 mL 4 MG IVP (12:07)
[2022-03-21 12:08] LABS: Add Urine Culture? No
[2022-03-21 12:25] LABS: Basophils # 0.1 10^3/uL (0.0-0.1); Basophils % 0.6 %; Eosinophils # 0.5 10^3/uL (0.0-0.8); Eosinophils % 3.4 %; Hematocrit 38.3 % (37.0-47.0); Hemoglobin 12.8 g/dL (11.5-15.3); Lymphocytes # 4.2 10^3/uL (0.8-4.8); Lymphocytes % 30.8 %; Mean Corpuscular HGB Conc 33.4 g/dL (30.0-36.0); Mean Corpuscular Hemoglobin 26.2 pg (28.0-34.0); Mean Corpuscular Volume 78.3 fl (81-99); Mean Platelet Volume 9.4 fL (7.4-10.4); Monocytes # 0.7 10^3/uL (0.2-0.9); Neutrophils # 8.12 10^3/uL (1.8-7.7); Neutrophils % 59.2 %; Nucleated Red Blood Cells % 0 %; Platelet Count 431 10^3/cmm (130-400); Red Blood Count 4.89 10^6/uL (4.1-5.3); Red Cell Distribution Width 14.1 % (12.1-15.1); White Blood Count 13.7 10^3/uL (4.0-10.0)
--- NOTE | 2022-03-21 12:27 | CTR_ITS ---
PROCEDURE INFORMATION: Exam: CT Abdomen And Pelvis Without Contrast Exam date and time: 03/21/2022 12:49 PM Age: 21 years old Clinical indication: Abdominal pain; Localized; Right upper quadrant (ruq); Additional info: Ruq pain TECHNIQUE: Imaging protocol: Computed tomography of the abdomen and pelvis without contrast. Radiation optimization: All CT scans at this facility use at least one of these dose optimization techniques: automated exposure control; mA and/or kV adjustment per patient size (includes targeted exams where dose is matched to clinical indication); or iterative reconstruction. COMPARISON: CT Abdomen 12/22/2020 5:44 PM RADIATION DOSE METRICS: Total DLP (mGy-cm): 1413.03 FINDINGS: Liver: Normal. No mass. Gallbladder and bile ducts: There has been a cholecystectomy. Pancreas: There is questionable mild edema of the pancreatic head and uncinate process. Evaluation is limited without intravascular contrast. No pancreatic calcification or pseudocyst. Spleen: Normal. No splenomegaly. Adrenal glands: Normal. No mass. Kidneys and ureters: Normal. No hydronephrosis. Stomach and bowel: Unremarkable. No obstruction. No mucosal thickening. Appendix: The appendix is visualized and appears normal. Intraperitoneal space: Unremarkable. No free air. No significant fluid collection. Vasculature: Unremarkable. No abdominal aortic aneurysm. Lymph nodes: Unremarkable. No enlarged lymph nodes. Urinary bladder: Unremarkable as visualized. Reproductive: Unremarkable as visualized. Bones/joints: Unremarkable. No acute fracture. Soft tissues: Unremarkable. CT/CT abdomen pelvis wo con 19846 IMPRESSION: There is questionable acute pancreatitis. Correlation with amylase and lipase are suggested.
[2022-03-21] MEDS: sodium chloride 0.9% 1,000 ML 999 ML IV (12:47)
[2022-03-21 12:51] LABS: HCG, Serum Qual Negative (Negative)
[2022-03-21 12:57] LABS: Alanine Aminotransferase 36 U/L (0-33); Albumin Level 4.1 g/dL (3.5-5.2); Alkaline Phosphatase 79 IU/L (35-105); Anion Gap 15.6 (5-19); Aspartate Amino Transferase 46 U/L (0-32); Blood Urea Nitrogen 6 mg/dL (6-20); Calcium 9.5 mg/dL (8.5-10.5); Carbon Dioxide 24 mmol/L (22-29); Chloride 104 mmol/L (98-107); Globulin 3.6 g/dL (1.3-4.6); Glomerular Filtration Rate 105.6 mL/min (90-130); Glucose 94 mg/dL (65-115); Lipase 34 U/L (13-60); Osmolality Calculated 287 mOsm/kg (285-295); Potassium 3.6 mmol/L (3.5-5.1); Sodium 140 mmol/L (136-145); Total Bilirubin 0.3 mg/dL (0.15-1.2); Total Protein 7.7 g/dL (6.6-8.7)
[2022-03-21 14:43] VITALS: BP 156/88; PULSE 88; RESP 16; O2SAT 98
[2022-03-21 15:23] LABS: Add Urine Microscopic? YES; Bilirubin Urine 1+ (Negative); Blood Urine Neg (Negative); Glucose Urine UA Norm (Normal); Ketones Urine Negative (Negative); Leukocyte Esterase Urine Trace (Negative); Nitrate Urine Negative (Negative); Protein Urine Neg (Negative); Specific Gravity, Urine 1.025 (1.005-1.030); Urine Appearance Clear (CLEAR); Urine Color Dark Yellow (Yellow); Urobilinogen Urine 8 mg/dL (Negative); pH Urine 5 (5-7)
[2022-03-21 15:26] LABS: Add Urine Culture? No; Bacteria Urine TRACE /hpf
== END 2022-03-21 14:45 | disposition home or self-care (01) ==
PROVIDERS: Emergency Provider Physician Assistant; PCP Internal Medicine
DX: R10.11 Right upper quadrant pain (principal)
CPT/HCPCS: 74176; 80053; 81001; 83690; 84703; 85025; 96374; 96375; 99285; J1170; J2405; J7030

== ENCOUNTER → 2023-02-21 11:40 | Outpatient (BNVA) | payer BC, SELFPAY | PROVIDERS: PCP Internal Medicine; Visit Provider Nurse Practitioner Family | DX: E66.9 Obesity, unspecified (principal); E28.2 Polycystic ovarian syndrome; L65.9 Nonscarring hair loss, unspecified; F32.9 Major depressive disorder, single episode, unspecified; K91.5 Postcholecystectomy syndrome; R53.83 Other fatigue; Z86.2 Personal history of diseases of the blood and blood-forming organs and certain disorders involving the immune mechanism | CPT/HCPCS: 80053; 80061; 82157; 82306; 82607; 82746; 83036; 84146; 84402; 84403; 84443 ==

== ENCOUNTER 2023-03-29 16:43 | Emergency (ER) | payer BC, SELFPAY ==
[2023-03-29 16:58] VITALS: BP 130/82; PULSE 101; RESP 12; TEMP 36.4; O2SAT 97; BMI 53.2
[2023-03-29 18:14] LABS: Basophils # 0.1 10^3/uL (0.0-0.1); Basophils % 0.4 %; Eosinophils # 0.1 10^3/uL (0.0-0.8); Eosinophils % 0.7 %; Hemoglobin 12.9 g/dL (11.5-15.3); Lymphocytes # 1.8 10^3/uL (0.8-4.8); Mean Corpuscular HGB Conc 31.5 g/dL (30.0-36.0); Mean Corpuscular Hemoglobin 25.1 pg (28.0-34.0); Mean Corpuscular Volume 79.8 fl (81-99); Monocytes # 0.6 10^3/uL (0.2-0.9); Monocytes % 4.8 %; Neutrophils # 8.92 10^3/uL (1.8-7.7); Neutrophils % 77.5 %; Nucleated Red Blood Cells % 0 %; Platelet Count 446 10^3/cmm (130-400); Red Blood Count 5.14 10^6/uL (4.1-5.3); Red Cell Distribution Width 14.8 % (12.1-15.1); White Blood Count 11.5 10^3/uL (4.0-10.0)
[2023-03-29] MEDS: ondansetron 2 mg/ML SDV 2 mL 4 MG IVP (18:17)
[2023-03-29] MEDS: sodium chloride 0.9% 1,000 ML 999 ML IV (18:18)
[2023-03-29 18:43] LABS: Alanine Aminotransferase 46 U/L (0-33); Albumin Level 4.3 g/dL (3.5-5.2); Alkaline Phosphatase 66 U/L (35-105); Blood Urea Nitrogen 8 mg/dL (6-20); Calcium 9.2 mg/dL (8.5-10.5); Carbon Dioxide 24 mmol/L (22-29); Chloride 106 mmol/L (98-107); Globulin 3.5 g/dL (1.3-4.6); Glomerular Filtration Rate 104.6 mL/min (90-130); Glucose 95 mg/dL (65-115); Lipase 25 U/L (13-60); Magnesium 2.4 mg/dL (1.7-2.3); Osmolality Calculated 288 mOsm/kg (285-295); Sodium 140 mmol/L (136-145); Total Bilirubin 0.2 mg/dL (0.15-1.2); Total Protein 7.8 g/dL (6.6-8.7)
--- NOTE | 2023-03-29 18:44 | W.ED.ABDPA2 ---
HPI - Abdominal Pain General: Chief Complaint: Abdominal Pain Stated Complaint: blackstool Time Seen by Provider: 03/29/23 17:14 History of Present Illness: Presents to the ER with complaints of nausea vomiting abdominal pain and dark enio grainy [id number] stools. Patient is currently on prednisone 20 mg a day for the last 4 days, ibuprofen 604 times a day for several days and azithromycin. Patient does have history of Robertson's esophagus. Patient is not vomiting any blood or coffee-ground emesis. Review of Systems General: Reports: 10 or more systems reviewed and unremarkable except in HPI and below PFSH ED PFSH: Medical History Gross hematuria Lyme disease Polycystic ovarian disease Vaginal bleeding Surgical History S/P cholecystectomy S/P tonsillectomy and adenoidectomy Family History Father CAD (coronary artery disease) Hypertension Hyperlipidemia Mother Hyperlipidemia Hypertension Social History Smoking and tobacco status: never smoked Alcohol intake: never Substance/Drug Use: never Marital status: Single Current occupational status: student Physical Exam Const: COMMON NORMALS: no acute distress, average body habitus, patient oriented x3, no limitations, healthy appearing, alert and well nourished HENMT: COMMON NORMALS: normocephalic, atraumatic, hearing grossly normal bilaterally, external ears normal, Normal external nose present and moist oral mucous membranes HEAD & SCALP: normocephalic and atraumatic NOSE: Normal external nose present EXTERNAL EAR: Yes external ears normal Eye: COMMON NORMALS: Equal, round and reactive pupils present, EOMs intact bilaterally, conjunctivae normal and no scleral icterus CONJUNCTIVA: Yes conjunctivae normal PUPIL: Yes Equal, round and reactive pupils present Neck/C-Spine: COMMON NORMALS: full ROM, no lymphadenopathy, supple, no meningeal signs, no JVD and Thyroid normal THYROID: Thyroid normal Chest: COMMONS NORMALS: normal inspection of the chest and normal palpation of entire chest wall Resp: COMMON NORMALS: normal respiratory effort, No retractions, No use of accessory muscles and clear to auscultation bilaterally AUSCULTATION: clear to auscultation bilaterally Cardio: COMMON NORMALS: no JVD, regular rate, regular rhythm, S1 normal heart sound present, S2 normal heart sound present, No gallops present (Cardio), No clicks present (Cardio), No murmurs present (Cardio) and No rub (Cardio) RATE: regular rate RHYTHM: regular rhythm HEART SOUNDS: S1 normal heart sound present and S2 normal heart sound present GI: COMMON NORMALS: Normal to inspection, nondistended, normoactive bowel sounds present, Soft to palpation, non-tender, No hepatosplenomegaly present and no masses PALPATION: Yes Soft to palpation and Yes No hepatosplenomegaly present : COMMON NORMALS: Yes no CVA tenderness BLADDER/KIDNEY EXAM: Yes no CVA tenderness Back/Pelvis: COMMON NORMALS: no CVA tenderness Neuro: COMMON NORMALS: patient oriented x3 SENSORIUM/ORIENTATION: Yes alert MENINGEAL SIGNS: Yes no meningeal signs Course Vital Signs: Vital signs: Vital Signs Temperature 97.6 F 03/29/23 16:58 Pulse Rate 101 H 03/29/23 16:58 Respiratory Rate 12 03/29/23 16:58 Blood Pressure 130/82 03/29/23 16:58 Pulse Oximetry 97 03/29/23 16:58 Oxygen Delivery Me thod Room Air 03/29/23 16:58 MDM - Abdominal Pain Medical Decision Making Presents to the ER with complaints of abdominal pain nausea vomiting and dark [id number] stools. Patient is currently on multiple doses of ibuprofen, prednisone and azithromycin. She does have a history of Robertson's esophagus. Lab work was essentially benign patient was given Zofran and fluid which should help with her symptoms. Patient be discharged home with a diagnosis of gastritis and placed on Pepcid and she is to follow-up with her PCP in the next 7 days. Differential Diagnosis Likely abdominal pain; Unlikely acute appendicitis, calculus of kidney, constipation, diverticulitis, endometriosis, gastroenteritis, pancreatitis or small bowel obstruction Medical Records I reviewed the patient's medical records. Lab Data I reviewed the patient's lab results. 03/29/23 18:03 03/29/23 18:03 Labs/Radiology: Laboratory Results WBC 11.5 10^3/uL (4.0-10.0) H 03/29/23 18:03 RBC 5.14 10^6/uL (4.1-5.3) 03/29/23 18:03 Hgb 12.9 g/dL (11.5-15.3) 03/29/23 18:03 Hct 41.0 % (37.0-47.0) 03/29/23 18:03 MCV 79.8 fl (81-99) L 03/29/23 18:03 MCH 25.1 pg (28.0-34.0) L 03/29/23 18:03 MCHC 31.5 g/dL (30.0-36.0) 03/29/23 18:03 RDW 14.8 % (12.1-15.1) 03/29/23 18:03 Plt Count 446 10^3/cmm (130-400) H 03/29/23 18:03 MPV 9.0 fL (7.4-10.4) 03/29/23 18:03 Neut % (Auto) 77.5 % 03/29/23 18:03 Lymph % (Auto) 16.0 % 03/29/23 18:03 [place] % (Auto) 4.8 % 03/29/23 18:03 Eos % (Auto) 0.7 % 03/29/23 18:03 Baso % (Auto) 0.4 % 03/29/23 18:03 Neut # (Auto) 8.92 10^3/uL (1.8-7.7) H 03/29/23 18:03 Lymph # (Auto) 1.8 10^3/uL (0.8-4.8) 03/29/23 18:03 [place] # (Auto) 0.6 10^3/uL (0.2-0.9) 03/29/23 18:03 Eos # (Auto) 0.1 10^3/uL (0.0-0.8) 03/29/23 18:03 Baso # (Auto) 0.1 10^3/uL (0.0-0.1) 03/29/23 18:03 Nucleated RBC % (auto) 0 % 03/29/23 18:03 Nucleated RBCs # 0.0 /100WBC 03/29/23 18:03 PT 12.80 SECONDS (12.1-14.9) 03/29/23 18:03 INR 0.93 (0.8-1.2) 03/29/23 18:03 Sodium 140 mmol/L (136-145) 03/29/23 18:03 Potassium 4.1 mmol/L (3.5-5.1) 03/29/23 18:03 Chloride 106 mmol/L (98-107) 03/29/23 18:03 Carbon Dioxide 24 mmol/L (22-29) 03/29/23 18:03 Anion Gap 14.1 (5-19) 03/29/23 18:03 BUN 8 mg/dL (6-20) 03/29/23 18:03 Creatinine 0.7 mg/dL (0.5-0.9) 03/29/23 18:03 GFR Calculation 104.6 mL/min (90-130) 03/29/23 18:03 Glucose 95 mg/dL (65-115) 03/29/23 18:03 Calculated Osmolality 288 mOsm/kg (285-295) 03/29/23 18:03 Calcium 9.2 mg/dL (8.5-10.5) 03/29/23 18:03 Magnesium 2.4 mg/dL (1.7-2.3) H 03/29/23 18:03 Total Bilirubin 0.2 mg/dL (0.15-1.2) 03/29/23 18:03 AST 42 U/L (0-32) H 03/29/23 18:03 ALT 46 U/L (0-33) H 03/29/23 18:03 Alkaline Phosphatase 66 U/L (35-105) 03/29/23 18:03 Total Protein 7.8 g/dL (6.6-8.7) 03/29/23 18:03 Albumin 4.3 g/dL (3.5-5.2) 03/29/23 18:03 Globulin 3.5 g/dL (1.3-4.6) 03/29/23 18:03 Lipase 25 U/L (13-60) 03/29/23 18:03 Discharge Plan Discharge Patient Disposition: Home Clinical Impression: Abdominal pain Qualifiers: Abdominal location: generalized Qualified Code(s): R10.84 - Generalized abdominal pain Gastritis Qualifiers: Gastritis type: unspecified gastritis Chronicity: acute Gastritis bleeding: with bleeding Qualified Code(s): K29.01 - Acute gastritis with bleeding Condition: Stable Prescriptions: New famotidine [Pepcid] 40 mg tablet 40 mg PO DAILY Qty: 30 0RF No Action cetirizine [Zyrtec] 10 mg tablet 10 mg PO DAILY@21 L norgest/e.estradiol-e.estrad [Jaimiess] 0.15 mg-30 mcg (84)/10 mcg (7) tablets,dose pack,3 month 1 tab PO DAILY@21 venlafaxine 75 mg capsule,extended release 24hr 75 mg PO QAM 90 Days Qty: 90 1RF finasteride 1 mg tablet 1 mg PO DAILY 90 Days Qty: 90 0RF folic acid 1 mg tablet 1 mg PO DAILY 90 Days Qty: 90 1RF cholecalciferol (vitamin D3) 25 mcg (1,000 unit) capsule 25 mcg PO DAILY 90 Days Qty: 90 1RF Hair, Skin, Nails with Biotin 7.5-7.5-1,250 mg-unit-mcg Tablet,Chewable 2 tab PO DAILY Discharge Orders: Discharge ED (Routine); Ordered 03/29/23 Ordered By: [place] Referrals: Kwame Vasquez MD [Primary Care Provider] - 1 week Patient Instructions: Gastritis (ED), Abdominal Pain (ED) Activity Restrictions/Additional Instructions: Please finish your prednisone as previously prescribed, please take your Pepcid as prescribed through the ER. Please follow-up with your family practice doctor in the next 1 to 2 weeks or sooner as needed for further evaluation and treatment. Coding Level of Care Code ED Overhead Line Worker for Amrit Torres
[2023-03-29 18:51] LABS: INR 0.93 (0.8-1.2)
[2023-03-29 19:00] LABS: Anion Gap 14.1 (5-19); Aspartate Amino Transferase 42 U/L (0-32); Potassium 4.1 mmol/L (3.5-5.1)
== END 2023-03-29 19:27 | disposition home or self-care (01) ==
PROVIDERS: Emergency Provider Emergency Medicine; PCP Internal Medicine
DX: K29.01 Acute gastritis with bleeding (principal); R10.84 Generalized abdominal pain
CPT/HCPCS: 80053; 83690; 83735; 85025; 85610; 96361; 96374; 99284; J2405; J7030

== ENCOUNTER 2023-03-31 13:29 | Emergency (ER) | payer BC, SELFPAY ==
[2023-03-31 13:41] VITALS: BP 129/83; PULSE 89; RESP 16; TEMP 36.7; O2SAT 98
--- NOTE | 2023-03-31 13:57 | ED_ITS ---
HPI - Abdominal Pain General: Chief Complaint: Abdominal Pain Stated Complaint: N/V/D abd pain Time Seen by Provider: 03/31/23 13:48 Source: patient Mode of arrival: ambulatory History of Present Illness: 22-year-old female presents emergency room with complaints of nausea and vomiting. She was seen 2 days ago evaluation was unremarkable. She has previously had a cholecystectomy. At her last ER visit there was a slight bump in her transaminases.. She denies any dysuria urgency or frequency no fever sweats or chills. No diarrhea has been nauseous and vomited several times. She was seen last year and mention to having acholic stools she states she still gets some of the acholic stools. MD elicited complaint: abdominal pain Onset (ago): day(s) Pain Consistency: constant Location: RUQ Severity: moderate Quality: cramping Exacerbating factors: eating Associated Symptoms: Reports bloating, change in bowel habits, change in stool character, melena, nausea, poor appetite and vomiting; Denies anorexia, belching, chills, coffee ground emesis, constipation, GI cramping, diarrhea, dyspepsia, dysuria, excessive flatus, fever(s), heartburn, hematochezia, hematuria, hematemesis, fecal incontinence, loose stools and syncope Treatments prior to arrival: other (Famotidine) Review of Systems Const: Denies: fever(s), chills, fatigue or malaise Card: Denies: syncope Resp: Denies: dyspnea, productive cough or non-productive cough GI: Reports: abdominal pain, nausea, vomiting, bloating, change in bowel h abits, change in stool character and melena; Denies: hematemesis, coffee ground emesis, heartburn, diarrhea, constipation, GI cramping, belching, excessive flatus, fecal incontinence or hematochezia : Denies: dysuria, urinary frequency, urinary urgency or hematuria Skin/Breast: Denies: rash or pruritus PFSH ED PFSH: Medical History Gross hematuria Lyme disease Polycystic ovarian disease Vaginal bleeding Surgical History S/P cholecystectomy S/P tonsillectomy and adenoidectomy Family History Father CAD (coronary artery disease) Hypertension Hyperlipidemia Mother Hyperlipidemia Hypertension Social History Smoking and tobacco status: never smoked Alcohol intake: never Substance/Drug Use: never Marital status: Single Current occupational status: student Physical Exam Const: COMMON NORMALS: no acute distress GENERAL APPEARANCE: cooperative and comfortable ORIENTATION/CONSCIOUSNESS: Yes awake, Yes oriented to person, Yes oriented to place and Yes oriented to time HENMT: COMMON NORMALS: normocephalic, atraumatic and hearing grossly normal bilaterally HEAD & SCALP: normocephalic and atraumatic Resp: COMMON NORMALS: normal respiratory effort, No retractions, No use of accessory muscles and clear to auscultation bilaterally AUSCULTATION: clear to auscultation bilaterally Cardio: COMMON NORMALS: regular rate, regular rhythm and No murmurs present (Cardio) RATE: regular rate RHYTHM: regular rhythm GI: COMMON NORMALS: Soft to palpation and No hepatosplenomegaly present AUSCULTATION: Yes normoactive bowel sounds PALPATION: Yes Soft to palpation, No Tenderness to palpation present (GI), No Guarding due to palpation present (GI) and Yes No hepatosplenomegaly present Extremity: COMMON NORMALS: normal to inspection, capillary refill normal, no clubbing, cyanosis or edema, no calf tenderness and no pedal edema Neuro: SENSORIUM/ORIENTATION: Yes oriented to person, Yes oriented to place and Yes oriented to time Skin: COMMON NORMALS: no rashes or lesions noted GENERAL SKIN EXAM: no rashes or lesions noted Course Vital Signs: Vital signs: Vital Signs Temperature 98.1 F 03/31/23 13:41 Pulse Rate 89 03/31/23 13:41 Respiratory Rate 16 03/31/23 13:41 Blood Pressure 129/83 03/31/23 13:41 Pulse Oximetry 98 03/31/23 13:41 Oxygen Delivery Me thod Room Air 03/31/23 13:41 MDM - Abdominal Pain Medical Decision Making Suspect the patient is having biliary colic despite the fact that her cholecystectomy. Patient may need further evaluation by gastroenterology inc luding EGD and possible ERCP to evaluate for potential sphincter Oddi disease. Recommend clear liquid diet antiemetics as needed follow-up with her primary care doctor. Recheck if has any worsening of symptoms. Discussed trigger foods that need to be avoided for now. Medical Records I reviewed the patient's medical records. Lab Data I reviewed the patient's lab results. 03/31/23 14:25 03/31/23 14:25 Labs/Radiology: Laboratory Results WBC 11.2 10^3/uL (4.0-10.0) H 03/31/23 14:25 RBC 4.77 10^6/uL (4.1-5.3) 03/31/23 14:25 Hgb 12.1 g/dL (11.5-15.3) 03/31/23 14:25 Hct 38.3 % (37.0-47.0) 03/31/23 14:25 MCV 80.3 fl (81-99) L 03/31/23 14:25 MCH 25.4 pg (28.0-34.0) L 03/31/23 14:25 MCHC 31.6 g/dL (30.0-36.0) 03/31/23 14:25 RDW 14.8 % (12.1-15.1) 03/31/23 14:25 Plt Count 403 10^3/cmm (130-400) H 03/31/23 14:25 MPV 8.7 fL (7.4-10.4) 03/31/23 14:25 Neut % (Auto) 61.0 % 03/31/23 14:25 Lymph % (Auto) 31.7 % 03/31/23 14:25 [place] % (Auto) 4.6 % 03/31/23 14:25 Eos % (Auto) 1.9 % 03/31/23 14:25 Baso % (Auto) 0.2 % 03/31/23 14:25 Neut # (Auto) 6.83 10^3/uL (1.8-7.7) 03/31/23 14:25 Lymph # (Auto) 3.5 10^3/uL (0.8-4.8) 03/31/23 14:25 [place]rick # (Auto) 0.5 10^3/uL (0.2-0.9) 03/31/23 14:25 Eos # (Auto) 0.2 10^3/uL (0.0-0.8) 03/31/23 14:25 Baso # (Auto) 0.0 10^3/uL (0.0-0.1) 03/31/23 14:25 Nucleated RBC % (auto) 0 % 03/31/23 14:25 Nucleated RBCs # 0.0 /100WBC 03/31/23 14:25 Sodium 141 mmol/L (136-145) 03/31/23 14:25 Potassium 4.0 mmol/L (3.5-5.1) 03/31/23 14:25 Chloride 106 mmol/L (98-107) 03/31/23 14:25 Carbon Dioxide 22 mmol/L (22-29) 03/31/23 14:25 Anion Gap 17.0 (5-19) 03/31/23 14:25 BUN 9 mg/dL (6-20) 03/31/23 14:25 Creatinine 0.7 mg/dL (0.5-0.9) 03/31/23 14:25 GFR Calculation 104.6 mL/min (90-130) 03/31/23 14:25 Glucose 85 mg/dL (65-115) 03/31/23 14:25 Calculated Osmolality 290 mOsm/kg (285-295) 03/31/23 14:25 Calcium 9.1 mg/dL (8.5-10.5) 03/31/23 14:25 Magnesium 2.2 mg/dL (1.7-2.3) 03/31/23 14:25 Total Bilirubin 0.3 mg/dL (0.15-1.2) 03/31/23 14:25 AST 35 U/L (0-32) H 03/31/23 14:25 ALT 60 U/L (0-33) H 03/31/23 14:25 Alkaline Phosphatase 69 U/L (35-105) 03/31/23 14:25 Total Protein 7.0 g/dL (6.6-8.7) 03/31/23 14:25 Albumin 3.9 g/dL (3.5-5.2) 03/31/23 14:25 Globulin 3.1 g/dL (1.3-4.6) 03/31/23 14:25 Lipase 21 U/L (13-60) 03/31/23 14:25 HCG, Qual Negative (Negative) 03/31/23 14:25 Urine Color Yellow (Yellow) 03/31/23 14:40 Urine Appearance Clear (CLEAR) 03/31/23 14:40 Urine pH 5 (5-7) 03/31/23 14:40 Ur Specific [place] 1.010 (1.005-1.030) 03/31/23 14:40 Urine Protein Neg (Negative) 03/31/23 14:40 Urine Glucose (UA) Norm (Normal) 03/31/23 14:40 Urine Ketones Negative (Negative) 03/31/23 14:40 Urine Blood Neg (Negative) 03/31/23 14:40 Urine Nitrate Negative (Negative) 03/31/23 14:40 Urine Bilirubin Neg (Negative) 03/31/23 14:40 Urine Urobilinogen Norm mg/dL (Negative) 03/31/23 14:40 Ur Leukocyte Esterase Negative (Negative) 03/31/23 14:40 Discharge Plan Discharge Patient Disposition: Home Clinical Impression: Biliary colic Condition: Stable Prescriptions: New pantoprazole 40 mg tablet,delayed release (DR/EC) 40 mg PO BID 14 Days Qty: 28 0RF ondansetron HCl 4 mg tablet 4 mg PO Q6H PRN (Reason: nausea and vomiting) Qty: 20 0RF Held famotidine [Pepcid] 40 mg tablet 40 mg PO DAILY Qty: 30 0RF Hold Instructions: Resume on 04/12/24. No Action L norgest/e.estradiol-e.estrad [Jaimiess] 0.15 mg-30 mcg (84)/10 mcg (7) tablets,dose pack,3 month 1 tab PO DAILY@21 venlafaxine 75 mg capsule,extended release 24hr 75 mg PO QAM 90 Days Qty: 90 1RF finasteride 1 mg tablet 1 mg PO DAILY 90 Days Qty: 90 0RF folic acid 1 mg tablet 1 mg PO DAILY 90 Days Qty: 90 1RF cholecalciferol (vitamin D3) 25 mcg (1,000 unit) capsule 25 mcg PO DAILY 90 Days Qty: 90 1RF Hair, Skin, Nails with Biotin 7.5-7.5-1,250 mg-unit-mcg Tablet,Chewable 2 tab PO DAILY fexofenadine 180 mg tablet 180 mg PO DAILY Discharge Orders: Discharge ED (Routine); Ordered 03/31/23 Ordered By: Noé Fan Referrals: Kwame Vasquez MD [Primary Care Provider] - Patient Instructions: Abdominal Pain (ED), Opioid Safety, Pain Management Activity Restrictions/Additional Instructions: Follow-up with your doctor when you return home. Return to the emergency room if any worsening problems. Coding Level of Care Code ED [employer] for Amrit Torres
--- NOTE | 2023-03-31 13:58 | ECG_ITS ---
[facility] Test Date: 2023-03-31 Pat Name: Mara Gibbs Department: Room: Gender: Female Call Specialist: : [id number] Requested By: Noé [place] Order Number: [id number] Nicko MD: Emmanuel Sanchez M.D. Measurements Intervals [place] Rate: 88 P: 7 MA: 138 QRS: 39 QRSD: 89 T: 46 QT: 347 QTc: 422 Interpretive Statements SINUS RHYTHM No previous ECG available for comparison Electronically Signed On 03-31-2023 14:00:41 CDT by Emmanuel Sanchez M.D. [email or web address]
[2023-03-31 14:31] LABS: Basophils % 0.2 %; Eosinophils # 0.2 10^3/uL (0.0-0.8); Eosinophils % 1.9 %; Hematocrit 38.3 % (37.0-47.0); Hemoglobin 12.1 g/dL (11.5-15.3); Lymphocytes # 3.5 10^3/uL (0.8-4.8); Lymphocytes % 31.7 %; Mean Corpuscular HGB Conc 31.6 g/dL (30.0-36.0); Mean Corpuscular Hemoglobin 25.4 pg (28.0-34.0); Mean Corpuscular Volume 80.3 fl (81-99); Mean Platelet Volume 8.7 fL (7.4-10.4); Monocytes # 0.5 10^3/uL (0.2-0.9); Monocytes % 4.6 %; Neutrophils # 6.83 10^3/uL (1.8-7.7); Nucleated Red Blood Cells % 0 %; Platelet Count 403 10^3/cmm (130-400); Red Blood Count 4.77 10^6/uL (4.1-5.3); Red Cell Distribution Width 14.8 % (12.1-15.1); White Blood Count 11.2 10^3/uL (4.0-10.0)
[2023-03-31] MEDS: sodium chloride 0.9% 1,000 ML 999 ML IV ×2 (14:44→16:06)
[2023-03-31 14:45] LABS: Add Urine Microscopic? NO; Charge for UA Resulting for Rev
[2023-03-31] MEDS: ondansetron 2 mg/ML SDV 2 mL 4 MG IVP (14:45)
[2023-03-31 14:47] LABS: Alanine Aminotransferase 60 U/L (0-33); Albumin Level 3.9 g/dL (3.5-5.2); Alkaline Phosphatase 69 U/L (35-105); Aspartate Amino Transferase 35 U/L (0-32); Blood Urea Nitrogen 9 mg/dL (6-20); Calcium 9.1 mg/dL (8.5-10.5); Carbon Dioxide 22 mmol/L (22-29); Chloride 106 mmol/L (98-107); Globulin 3.1 g/dL (1.3-4.6); Glomerular Filtration Rate 104.6 mL/min (90-130); Glucose 85 mg/dL (65-115); Lipase 21 U/L (13-60); Magnesium 2.2 mg/dL (1.7-2.3); Osmolality Calculated 290 mOsm/kg (285-295); Sodium 141 mmol/L (136-145); Total Bilirubin 0.3 mg/dL (0.15-1.2)
[2023-03-31 14:51] LABS: HCG, Serum Qual Negative (Negative)
[2023-03-31 14:51] LABS: Bilirubin Urine Neg (Negative); Blood Urine Neg (Negative); Glucose Urine UA Norm (Normal); Ketones Urine Negative (Negative); Leukocyte Esterase Urine Negative (Negative); Nitrate Urine Negative (Negative); Protein Urine Neg (Negative); Urine Appearance Clear (CLEAR); Urine Color Yellow (Yellow); Urobilinogen Urine Norm (Negative); pH Urine 5 (5-7)
== END 2023-03-31 16:57 | disposition home or self-care (01) ==
PROVIDERS: Emergency Provider Family Medicine; PCP Internal Medicine
DX: K80.50 Calculus of bile duct without cholangitis or cholecystitis without obstruction (principal)
CPT/HCPCS: 80053; 81003; 83690; 83735; 84703; 85025; 93005; 96361; 96374; 99284; J2405; J7030